=== PATIENT | male | born 1990 | race Two or more races ===

== ENCOUNTER 2023-11-20 18:12 | Emergency (ER) | payer SELFPAY | END 2023-11-20 19:47 | disposition home or self-care (01) | LOC: JD.ED 18:12 | DX: T51.1X1A Toxic effect of methanol, accidental (unintentional), initial encounter (principal); T26.62XA Corrosion of cornea and conjunctival sac, left eye, initial encounter; T26.61XA Corrosion of cornea and conjunctival sac, right eye, initial encounter; X12.XXXA Contact with other hot fluids, initial encounter; Y93.89 Activity, other specified; Y99.0 Civilian activity done for income or pay; Y92.89 Other specified places as the place of occurrence of the external cause | CPT/HCPCS: 99283 ==